=== PATIENT | female | born 1955 | race Two or more races ===

== ENCOUNTER 2021-06-26 17:19 | Emergency (ER) | payer MEDICAID ==
[~2021-06-26] VITALS: Ht 162.6 cm; Wt 68.2 kg
[2021-06-26] MEDS ORDERED: GABA-1181 PO (17:31)
[2021-06-26] MEDS ORDERED: ATOR40TA28 PO (17:32)
[2021-06-26] MEDS ORDERED: METF-960 PO (17:33)
[2021-06-26] MEDS ORDERED: GLIP5 PO (17:33)
[2021-06-26] MEDS ORDERED: SERT-162 PO (17:34)
[2021-06-26] MEDS ORDERED: CLOP75TA60 PO (17:36)
[2021-06-26 17:46] LABS: GLUCOSE,POINT OF CARE 45 MG/DL (70-110)
[2021-06-26] MEDS ORDERED: DEXTROSE 50%-WATER 25 GM/50 ML SYRINGE IVP ONE (18:00)
[2021-06-26 18:04] LABS: EOSINOPHILS % (AUTO) 1.9 % (1.0-6.0); HEMOGLOBIN 13.5 g/dL (12.0-16.0); LYMPHOCYTES # (AUTO) 2.4 K/uL (1.0-4.8); MEAN CORPUSCULAR HEMOGLOBIN 28.9 pg (26.0-34.0); MEAN CORPUSCULAR VOLUME 88 fL (80-100); MONOCYTES # (AUTO) 0.6 K/uL (0.1-1.0); MONOCYTES % (AUTO) 7.6 % (2.0-9.0); NEUTROPHILS # (AUTO) 4.5 K/uL (1.8-7.7); NEUTROPHILS % (AUTO) 58.5 % (40.0-70.0); PLATELET COUNT (AUTO) 196 K/uL (150-450); RED BLOOD CELL COUNT(AUTO) 4.67 MIL/uL (4.00-5.20); RED CELL DISTRIBUTION WIDTH 14.1 % (11.5-14.5)
[2021-06-26 18:12] LABS: ANION GAP 12 mmol/L (8-16); CALCIUM, TOTAL 9.8 mg/dL (8.8-10.5); CARBON DIOXIDE 28 mmol/L (22-29); CHLORIDE 103 mmol/L (98-107); CREATININE 0.65 mg/dL (0.60-1.30); GLOMERULAR FILTR. RATE CALC > 60 mL/min (>60); GLUCOSE,RANDOM 81 mg/dL (70-110); POTASSIUM 4.1 mmol/L (3.5-5.1); SODIUM SERUM 143 mmol/L (136-145); UREA NITROGEN, BLOOD 13 mg/dL (7-18)
[2021-06-26 18:18] LABS: ALANINE AMINOTRANSFERASE 33 U/L (12-78); ALBUMIN 4.6 g/dL (3.4-5.0); ALKALINE PHOSPHATASE 93 U/L (46-116); ASPARTATE AMINOTRANSFERASE 22 U/L (15-37); BILIRUBIN,TOTAL 0.3 mg/dL (0.1-1.0); TOTAL PROTEIN, SERUM 8.3 g/dL (6.4-8.2)
[2021-06-26 18:58] LABS: GLUCOMETER DEV NAME(LOC) ERT.5; GLUCOSE,POINT OF CARE 263 MG/DL (70-110)
[2021-06-26 21:02] VITALS: BP 125/62
[2021-06-26] MEDS ORDERED: IBUPROFEN 600 MG TABLET PO ONE (21:15)
[2021-06-26 23:15] LABS: GLUCOSE,POINT OF CARE 144 MG/DL (70-110)
== END 2021-06-26 22:02 | disposition home or self-care (01) ==
LOC: EMS 17:31
DX: E11.649 Type 2 diabetes mellitus with hypoglycemia without coma (principal); I10 Essential (primary) hypertension; E78.00 Pure hypercholesterolemia, unspecified; Z86.73 Personal history of transient ischemic attack (TIA), and cerebral infarction without residual deficits; Z79.84 Long term (current) use of oral hypoglycemic drugs
CPT/HCPCS: 80053; 82962; 85025; 93005; 96374; 99285